=== PATIENT | female | born 1940 | race Caucasian/White ===

== ENCOUNTER 2019-02-03 13:41 | Day surgery (SDC) | payer OTHER ==
[2019-01-27 12:26] LABS: HEMATOCRIT 43.7 % (37.0-47.0); HEMOGLOBIN 14.8 gm/dL (12.0-15.0); MCH 30.8 pg (26.0-34.0); MCHC 33.9 g/dL (28.0-37.0); MCV 90.8 fL (80.0-100.0); RBC 4.81 mil/uL (4.20-5.00); RDW 13.9 % (10.5-14.5); WBC 6.5 thou/uL (4.0-11.0)
[2019-01-27 12:28] LABS: URINE BILIRUBIN NEGATIVE (Negative); URINE BLOOD NEGATIVE (Negative); URINE CLARITY HAZY; URINE COLOR YELLOW; URINE GLUCOSE-RANDOM* NEGATIVE (Negative); URINE KETONES NEGATIVE (Negative); URINE LEUKOCYTES-REFLEX TRACE (Negative); URINE NITRITE-REFLEX POSITIVE (Negative); URINE PROTEIN (DIPSTICK) NEGATIVE (Negative); URINE SPECIFIC GRAVITY 1.025 (1.005-1.035); URINE UROBILINOGEN 0.2 E.U./dl (0.2-1.0)
[2019-01-27 12:52] LABS: CALCIUM 9.7 mg/dL (8.5-10.1); POTASSIUM 3.7 mmol/L (3.5-5.1)
[2019-01-27 12:56] LABS: BACTERIA-REFLEX >30 Many /HPF (None Seen); CASTS None Seen /LPF (None Seen); CRYSTALS None Seen /LPF (None Seen); SQUAMOUS 4-10 Moderate /LPF (0-3); URINE RBC None Seen /HPF (0-2); URINE WBC-REFLEX 6-15 Few /HPF (0-5)
--- NOTE | 2019-01-28 08:15 | EKG ---
[place] [address] [facility] [place] [address] ELECTROCARDIOGRAM REPORT Name: KIKE OCHOA Room #: PRE IN [facility]#: [id number] Admission: Attend Phys: Frankie Miramontes MD Discharge: Date of : 40 Report #: [id number] THIS REPORT FOR: //name// [facility] Test Date: 2019-01-27 Test Time: 12:23:20 Pat Name: KIKE OCHOA Department: Room: Gender: F Photographic Technician: Sam TUCKER : 1940 Requested By: Frankie Miramontes Order Number: [id number] MD: Ruben Davenport Measurements Intervals Iva Rate: 84 P: 23 MI: 168 QRS: -29 QRSD: 137 T: 119 QT: 429 QTc: 508 Interpretive Statements Sinus rhythm Left bundle branch block No previous ECG available for comparison Electronically Signed On 01-28-2019 8:15:47 CDT by Ruben Davenport [email or web address] <ELECTRONICALLY SIGNED> By: Ruben Davenport MD, [facility] 01/28/19 0815 1223 1223 Ruben Davenport MD, FACC /EPI
--- NOTE | 2019-01-28 13:16 | NUR ---
AT PAC APPT ON 01/27/19, EKG WAS DONE. FOUND TO HAVE LBBB. PATIENT'S DAUGHTER STATED THAT SHE HAS HAD THE LBBB. LAST EKG WAS DONE AT [facility] PRIOR TO SURGERY IN 2006. PATIENT STATES ECHO WAS DONE BY DR ELIZABETH AFTER THIS WAS FOUND AND WAS TOLD IT WAS "NOTHING". NO RECORDS WERE FOUND AT DR ELIZABETH'S OFFICE. EKG WAS OBTAINED FROM [facility] FROM 05/2007. ANESTHESIA REVIEWED AND COMPARED EKG'S. PATIENT IS ASYMPTOMATIC. NO FURTHER TESTING WAS ORDERED.
[~2019-02-03] VITALS: Ht 165.1 cm; Wt 72.6 kg
[~2019-02-03 13:41] MED LIST: MULTI VITAMIN1 EACH PO; ROPINIROLE HCL0.5 MG PO
[2019-02-03 14:20] VITALS: BP 134/64
[2019-02-03 18:00] VITALS: BP 137/60
[2019-02-03 18:30] VITALS: BP 142/64
[2019-02-03 19:00] VITALS: BP 146/62
[2019-02-03 19:20] VITALS: BP 145/61
[2019-02-03 19:28] VITALS: BP 145/61
--- NOTE | 2019-02-04 04:06 | NUR ---
Pt. rested quietly during the night when checked on during frequent rounds. She offers no c/o pain. Picco dressing is dry and intact to left knee. Ice packs applied periodically throughout the shift. Pt. did get up to the bedside comode with assist of one and did well. Daughter at the bedside all shift.
[2019-02-04 04:25] VITALS: BP 106/47
[2019-02-04 05:49] LABS: HEMATOCRIT 36.1 % (37.0-47.0); HEMOGLOBIN 12.3 gm/dL (12.0-15.0); MCH 30.9 pg (26.0-34.0); MCHC 34.1 g/dL (28.0-37.0); MCV 90.7 fL (80.0-100.0); RBC 3.98 mil/uL (4.20-5.00); RDW 13.9 % (10.5-14.5); WBC 11.4 thou/uL (4.0-11.0)
[2019-02-04 08:37] VITALS: BP 108/64
[2019-02-04] MEDS ORDERED: ASPIR 8181 MG PO (10:51)
[2019-02-04] MEDS ORDERED: NEURONTIN 300300 M1 PO (10:51)
[2019-02-04 13:36] VITALS: BP 108/64
--- NOTE | 2019-02-04 13:57 | NUR ---
PT ADMITTED RELATED TO RIGHT TKR. CM REVIEWED CHART AND SPOKE WITH CARE TEAM. CM MET WITH PT AND DTR AT BEDSIDE THIS DAY. PT IS A&O X4. CM ROLE INTRODUCED. PT INIDCATED SHE LIVES IN A HOUSE WITH HER WITH 1 STEP TO ENTER AND NO STEPS INSIDE. PT INIDCATED SHE HAS A FWW AND 2 CANES. PT INDICATED SHE IS GOING TO [facility] [place] [facility] OP THERAPY UPON DC. CARE TEAM INDICATED THAT PT IS MEDICALLY STABLE TO DC HOME THIS DAY. NO OTHER CM INTERVENTION INDICATED. CASE CLOSED.
[2019-02-04 14:35] VITALS: BP 156/67
--- NOTE | 2019-02-04 15:43 | NUR ---
ASSESSMENT CHARTED - MEDS PER AUG - GIVEN LORTAB X 2 DOSES FOR CO'S OF PAIN WITH GOOD RELIEF. PT UP ON THE UNIT AMBULATING WITH THE USE OF A WALKER - UP TO THE CHAIR. ENZO DIET AND FLUIDS WITH NO CO'S OF NAUSEA. SEEN BY PHYS THERAPY X 2 TODAY. P HOME THIS AFTERNOON. INSTRUCTION RE HOME MEDS/CARE AND FOLLOW UP GIVEN TO PATIENT AND CHICOE - PT TO STOP AT DR OFFICE ON THE WAY HOME TO GET PRESCRIPTIONS FOR NEEDED MEDICATION. PT LEFT UNIT VIA WHEEL CHAIR. HOME VIA PVT VEHICLE ACCOMPANIED BY DAUGHTER.
--- NOTE | 2019-02-12 12:23 | O ---
[facility] [place] [address] OPERATIVE REPORT Name: KIKE FERNANDEZ Chidi Room #: DEP [facility] Maribel#: [id number] Admission: 02/03/19 Attend Phys: Frankie Miramontes MD Discharge: 02/04/19 Date of : 40 Report #: [id number] THIS REPORT FOR: //name// CC: Flo Miramontes DATE OF SERVICE: 02/03/2019 PREOPERATIVE DIAGNOSIS: Left knee osteoarthritis. POSTOPERATIVE DIAGNOSIS: Left knee osteoarthritis. PROCEDURE: Left total knee arthroplasty using Navio robotic assistance. SURGEON: Frankie Miramontes MD. LITHOGRAPH OPERATOR: Cate Escobar PA-C. ANESTHESIA: LMA with an adductor canal block. INDICATIONS FOR LITHOGRAPH OPERATOR: Throughout the case extensive retraction and manipulation of the knee was required. This was afforded to me by my assistant golf coach. IMPLANTS: Fernandez and Nephew size 5 Legion cobalt chrome posterior stabilized femur, a size 4 tibia, size 32 patella and size 12 polyethylene. TOURNIQUET TIME: 56 minutes. ESTIMATED BLOOD LOSS: 25 mL. COMPLICATIONS: None. SPECIMENS: None. CONDITION UPON LEAVING THE OPERATING ROOM: Stable. INDICATIONS FOR PROCEDURE: The patient is a 79-year-old female with severe left knee osteoarthritis who failed conservative measures for this and after discussion with her, she elected for left total knee arthroplasty. DESCRIPTION OF PROCEDURE: Risks, benefits, alternatives, complications were discussed in detail with the patient including but not limited to risk of anesthesia, risk of damage to nerves, arteries, blood vessels, risk for infection, bleeding, risk for continued knee pain, need for reoperation. Informed consent was obtained from the patient. Left knee was appropriately marked in the preoperative holding area. IV Ancef was given for preoperative [address] [address] OPERATIVE REPORT Name: KIKE FERNANDEZ Chidi Room #: DEP [facility] Maribel#: [id number] Admission: 02/03/19 Attend Phys: Frankie Miramontes MD Discharge: 02/04/19 Date of : 40 Report #: [id number] antibiotics. She was brought to the operating room and placed in supine position on operating room table. LMA anesthesia was induced without complication. Tourniquet was placed on the left thigh. Left lower extremity was prepped and draped in normal sterile fashion. Timeout was performed, properly identifying the patient and procedure as well as the instrumentation. All in the operating room were in agreement. Left lower extremity was exsanguinated, tourniquet was inflated. Tourniquet time was 56 minutes. Standard midline approach to knee was made with 10 blade through the skin. Dissection was taken down sharply to the fascia and deep flaps were developed medially and laterally. Fresh 10 blade was used to make a medial parapatellar arthrotomy and the knee was inspected. There was severe tricompartmental osteoarthritis. ACL and PCL were removed sharply. Osteophytes were removed from the femur and the tibia. Reference pins were then placed in the femur and the tibia and the knee was digitally mapped using the Navio robotic system. Intraoperative plan was made and we sized to size 5 femur, size 4 tibia, and with a size 12 spacer. After acceptance of the intraoperative plan, the distal femoral cut was made with a Navio bur. The size 5, 4-in-1 cutting block was placed. Anterior, posterior and chamfer cuts were made. Attention was then turned to the tibia. The remainder of the menisci removed with Bovie cautery. The tibial resection guide was pinned in place using the Navio system for placement and the tibial resection was made. Flexion and extension gaps were checked and found to have good balance in flexion and extension. Tibia was sized, found to be a size 4. Size 4 tibial trial was placed, pinned and punched. Size 5 femoral trial was placed and the box cut was made. This was then trialed with a size 11 and then a size 12 polyethylene and size 12 polyethylene demonstrated a millimeter of laxity throughout range of motion of the knee both medially and laterally. This was verified digitally using the Navio system. After this, trial components were removed. Bony ends were thoroughly irrigated with normal saline. A final size 4 tibia, size 5 Legion cobalt chrome posterior stabilized femur and a size 32 patella were cemented in place using standard cementation techniques. While the cement cured, a periarticular injection consisting of morphine, ropivacaine, epinephrine and Toradol was placed around the knee joint capsule. After the cement cured, the tourniquet was deflated. Hemostasis was obtained with Bovie cautery. Final size 12 polyethylene was placed. A gram of vancomycin was placed deep in the joint. Fascia was closed with 0 Vicryl, skin was closed with 2-0 Vicryl, 3-0 Monocryl. Dermabond and a BLANCA dressing was applied. The patient tolerated this procedure well and went to recovery room under care of anesthesia postoperatively. <ELECTRONICALLY SIGNED> By: Frankie Miramontes MD 02/12/19 1223 1710 194 Frankie Miramontes MD /nt
== END 2019-02-04 16:10 | disposition home or self-care (01) ==
LOC: OR 13:41 → TBA 13:42 → EDSTATUS 16:06 → OR 16:10 → 4W 18:49 → ENTRNSPT 02-04 15:03 → EDTRNSPTSTS 02-04 15:34 → OR 02-04 16:10
PROVIDERS: Orthopaedic Surgery
DX: M17.12 Unilateral primary osteoarthritis, left knee (principal); Z79.899 Other long term (current) drug therapy; Z90.49 Acquired absence of other specified parts of digestive tract; Z98.41 Cataract extraction status, right eye; Z98.42 Cataract extraction status, left eye; Z98.890 Other specified postprocedural states; M25.562 Pain in left knee
CPT/HCPCS: 27447; C1776; 10047; 50010; 50101; 50415; 50954; 51130; 51225; 53000; 53078; 53364; 54118; 56527; 56528; 57095; 57103; 57110; 57127; 57180; 62110; 62900; 70005

== ENCOUNTER 2019-05-07 07:56 | Inpatient (IN) | payer OTHER ==
[2019-04-28 12:18] LABS: HEMATOCRIT 43.5 % (37.0-47.0); HEMOGLOBIN 14.6 gm/dL (12.0-15.0); MCH 30.6 pg (26.0-34.0); MCHC 33.5 g/dL (28.0-37.0); MCV 91.4 fL (80.0-100.0); RBC 4.76 mil/uL (4.20-5.00); WBC 6.5 thou/uL (4.0-11.0)
[2019-04-28 12:30] LABS: URINE BILIRUBIN NEGATIVE (Negative); URINE BLOOD NEGATIVE (Negative); URINE CLARITY CLEAR; URINE COLOR YELLOW; URINE GLUCOSE-RANDOM* NEGATIVE (Negative); URINE KETONES NEGATIVE (Negative); URINE LEUKOCYTES-REFLEX NEGATIVE (Negative); URINE PROTEIN (DIPSTICK) NEGATIVE (Negative); URINE SPECIFIC GRAVITY 1.025 (1.005-1.035); URINE UROBILINOGEN 0.2 E.U./dl (0.2-1.0)
[2019-04-28 12:32] LABS: PROTIME 10.4 Seconds (9.3-11.4)
[2019-04-28 12:36] LABS: ALBUMIN 3.9 g/dL (3.4-5.0); CALCIUM 10.1 mg/dL (8.5-10.1); POTASSIUM 4.2 mmol/L (3.5-5.1)
[2019-04-28 12:39] LABS: URINE NITRITE-REFLEX POSITIVE (Negative)
[2019-04-28 13:17] LABS: CASTS None Seen /LPF (None Seen); SQUAMOUS 0-3 Few /LPF (0-3)
[2019-04-28 13:18] LABS: BACTERIA-REFLEX >30 Many /HPF (None Seen); CRYSTALS None Seen /LPF (None Seen); URINE RBC None Seen /HPF (0-2); URINE WBC-REFLEX 0-5 Rare /HPF (0-5)
[~2019-05-07] VITALS: Ht 162.6 cm; Wt 71.2 kg
--- NOTE | ~2019-05-07 | O ---
[place] [address] OPERATIVE REPORT Name: KIKE FERNANDEZ Room #: 438-P [facility] IN M.R.#: [id number] Admission: 05/07/19 Attend Phys: Frankie Miramontes MD Discharge: Date of : 40 Report #: [id number] THIS REPORT FOR: //name// CC: Flo Miramontes DATE OF SERVICE: 05/07/2019 PREOPERATIVE DIAGNOSIS: Right knee osteoarthritis. POSTOPERATIVE DIAGNOSIS: Right knee osteoarthritis. PROCEDURE: Right total knee arthroplasty using Navio robotic assistance. SURGEON: Frankie Miramontes MD. INSPECTOR FILTER TIP: Cate Escobar PA-C. INDICATIONS FOR INSPECTOR FILTER TIP: Throughout the case, extensive retraction and manipulation of the knee was required. This was afforded to me by my esol teacher assistant. ANESTHESIA: LMA with an adductor canal block. IMPLANTS: Fernandez and Nephew size 5 narrow Legion cobalt chrome posterior stabilized femur, size 4 tibia, size 11 polyethylene and size 32 patella. TOURNIQUET TIME: 47 minutes. ESTIMATED BLOOD LOSS: 25 mL. COMPLICATIONS: None. SPECIMENS: None. CONDITION UPON LEAVING THE OPERATING ROOM: Stable. INDICATIONS FOR PROCEDURE: The patient is a 79-year-old female with severe right knee osteoarthritis. After discussion with her, she elected for total knee arthroplasty. DESCRIPTION OF PROCEDURE: Risks, benefits, alternatives, complications were discussed in detail with the patient including but not limited to risk of anesthesia, risk of damage to nerves, arteries, blood vessels, risk for infection, bleeding, risk for continued knee pain, need for reoperation. Informed consent was obtained from the patient. Right knee was appropriately marked in the preoperative holding area. IV Ancef was given for preoperative [facility] [address] [place] [address] OPERATIVE REPORT Name: KIKE FERNANDEZ Chidi Room #: 438-P [facility] IN .R.#: [id number] Admission: 05/07/19 Attend Phys: Frankie Miramontes MD Discharge: Date of : 40 Report #: [id number] antibiotics. Adductor canal block was placed by Anesthesia. She was brought to the operating room and placed in supine position on operating room table. LMA anesthesia was induced without complication. Tourniquet was placed on the right thigh. Right lower extremity was prepped and draped in normal sterile fashion. Timeout was performed properly identifying the patient and procedure as well as the instrumentation. All in the operating room were in agreement. Right lower extremity was exsanguinated, tourniquet was inflated. Tourniquet time was 47 minutes. Standard midline approach to knee was made with 10 blade through the skin. Dissection was taken down sharply to the fascia and deep flaps were developed ____. There was severe tricompartment osteoarthritis. ACL and PCL were removed sharply. Reference pins were placed in the femur and the tibia and the knee was then digitally mapped using the Acacia robotic system. Intraoperative plan was made and we sized the size 5 femur, a size 4 tibia and 11 spacer. After acceptance of the intraoperative plan, the distal femoral cut was made with a Navio bur and the size 5, 4-in-1 cutting block was pinned in place. Anterior, posterior and chamfer cuts were made. After this, attention was turned to the tibia. Remainder of the menisci removed with Bovie cautery. Tibial resection guide was pinned in place using the Navio for placement. Tibial resection was made. Flexion and extension gaps were then checked and found to have good balance in flexion and extension both medially and laterally. After this, tibia was sized, found to be a size 4. Size 4 tibial trial was placed, pinned and punched. A size 5 femoral trial was placed and box cut was made. This was then trialed with a size 11 polyethylene. Knee was taken through range of motion, found to have a millimeter laxity medially and laterally, both digitally as well as manually throughout range of motion. A 9 mm was then resected from the posterior surface of the patella and a size 32 patellar trial button was placed. Knee was taken through range of motion, found to have good patellar tracking. After this, trial components were removed. Bony ends were thoroughly irrigated with normal saline. A final size 4 tibia, size 5 narrow Legion cobalt chrome posterior stabilized femur and a size 32 patella were cemented in place using standard cementation techniques. While the cement cured, a periarticular injection consisting of morphine, ropivacaine, epinephrine and Toradol was placed around the knee joint capsule. After the cement cured, the tourniquet was deflated. Hemostasis was obtained with Bovie cautery. A final size 11 polyethylene was placed. ____ was placed deep in the joint. Fascia was closed with 0 Vicryl, skin was closed with 2-0 Vicryl, 3-0 Monocryl and Dermabond and a BLANCA dressing was applied. The patient tolerated this procedure well and went to recovery room under care of anesthesia postoperatively. By: [id number] [id number] Frankie Miramontes MD /nt
[~2019-05-07 07:56] MED LIST changes: +ASPIR 8181 MG PO; +NEURONTIN 300300 M1 PO; +PRESERVISION A1 EAC2 PO
[2019-05-07 12:46] VITALS: BP 142/74
[2019-05-07 17:30] VITALS: BP 124/60
[2019-05-07 17:48] VITALS: BP 124/60
--- NOTE | 2019-05-07 18:33 | NUR ---
PATIENT HAD RIGHT KNEE REPLACED TODAY CAME TO 438 AT 1710. A/O X4. DENIES PAIN. BLANCA DRESSING INTACTED WITH POLAR ICE MACHINE. VSS TOLERATED REGULAR DIET. FAMILY AT BED SIDE. WILL KEEP MONITOR.
[2019-05-08 00:16] VITALS: BP 128/75
--- NOTE | 2019-05-08 02:43 | NUR ---
ASSUMED CARE OF PATIENT AT APPROX 1999. ASSESSMENT CHARTED. MEDICATIONS GIVEN PER AUG. PRN HYDROXIZINE GIVEN FOR RESTLESSNESS. VSS. PATIENT VOICES PAIN AT A 1/10. PATIENT IS A&OX4 WITH SOME ANXIETY. PATIENT IS CONCERNED ABOUT BEING ABLE TO DISCHARGE SOON. IV ANTIBIOTICS ADMINISTERED. PATIENT GOT UP TO THE BATHROOM THIS SHIFT AND COMPLAINS OF PAIN AT 2/10 DURING MOVEMENT. PATIENT TOLERATED WELL. WE WILL USE A BSC TONIGHT SINCE PAIN MEDS ARE BEING ADMINISTERED. SCD'S IN PLACE, POLAR PACK IN PLACE AND INTACT, SURAJ HOSE ON AND IN PLACE. PATIENT VOICES NO OTHER NEEDS AT THIS TIME. FALL PRECAUTIONS IN PLACE. FAMILY AT BEDSIDE. WILL CONTINUE TO MONITOR AND FOLLOW POC
[2019-05-08 05:33] LABS: HEMATOCRIT 37.4 % (37.0-47.0); HEMOGLOBIN 12.5 gm/dL (12.0-15.0); MCH 30.4 pg (26.0-34.0); MCHC 33.5 g/dL (28.0-37.0); MCV 90.8 fL (80.0-100.0); RBC 4.12 mil/uL (4.20-5.00); RDW 13.8 % (10.5-14.5); WBC 9.2 thou/uL (4.0-11.0)
[2019-05-08] MEDS ORDERED: NEURONTIN 300300 M1 PO (09:54)
[2019-05-08] MEDS ORDERED: ASPIR 8181 MG PO (09:54)
[2019-05-08 10:28] VITALS: BP 128/75
--- NOTE | 2019-05-08 10:44 | NUR ---
ASSESSMENT-PT LIVES AT HOME WITH HER . SHE HAS A FWW AND 2 CANES AT HOME ALREADY. SHE HAS HER OUTPT APPT SET UP AT [facility] IN [place] FOR MON. DTR AT BEDSIDE AND WILL STAY THE DAY WITH HER AND MAYBE TONIGHT WELL. PT VOICES NO CONCERNS RELATED TO DC. DTR WILL ASSIST WITH ADLS. SPOUSE INDEPENDENT. NO DC NEEDS IDENTIFIED.
== END 2019-05-08 15:54 | disposition home or self-care (01) | DRG 470 ==
LOC: PRE 07:56 → 4S 10:02 → TBA 10:02 → PRE 11:16 → 4S 17:46 → ENTRNSPT 05-08 11:00 → EDTRNSPTSTS 05-08 11:05 → 4S 05-08 15:54
PROVIDERS: ADMIT Orthopaedic Surgery
PROC: 8E0Y0CZ Robotic Assisted Procedure of Lower Extremity, Open Approach (ICD-10-PCS; principal; 2019-05-07)
PROC: 0SRC0J9 Replacement of Right Knee Joint with Synthetic Substitute, Cemented, Open Approach (ICD-10-PCS; principal; 2019-05-07)
DX: M17.11 Unilateral primary osteoarthritis, right knee (principal); Z96.652 Presence of left artificial knee joint; Z79.82 Long term (current) use of aspirin; Z79.899 Other long term (current) drug therapy
CPT/HCPCS: 10102; 50010; 50101; 50415; 50954; 51130; 51225; 51320; 52001; 52282; 53000; 53078; 53364; 54118; 56527; 56528; 57095; 57103; 57110; 57127; 57180; 62110; 62900; 64039; 64042; 70005